=== PATIENT | female | born 1990 | race Two or more races ===

== ENCOUNTER → 2018-12-11 | Outpatient (CLI) | payer BC ==
[~2018-12-11] MED LIST: FER325 PO; MAG-19 PO
== END | disposition home or self-care (01) ==
LOC: LAB 12:40
PROVIDERS: ATTEND Obstetrics & Gynecology
DX: O26.91 Pregnancy related conditions, unspecified, first trimester (principal); Z3A.00 Weeks of gestation of pregnancy not specified
CPT/HCPCS: 84702

== ENCOUNTER 2018-12-14 20:54 | Emergency (ER) | payer BC ==
[~2018-12-14] VITALS: Ht 162.6 cm; Wt 62.7 kg
[2018-12-14 20:57] VITALS: BP 133/63; PULSE 82; RESP 17; Ht 162.6 cm; Wt 62.7 kg
[2018-12-14] MEDS ORDERED: LIDOCAINE/MYLANTA 40 ML BTL PO STA (21:25)
[2018-12-14] MEDS ORDERED: FER325 PO (22:24)
[2018-12-14] MEDS ORDERED: MAG-19 PO (22:24)
--- NOTE | 2018-12-14 22:31 | ERD ---
ER Documentation Chief Complaint Chief Complaint AP x1 day. no n/v/d/urinary symptoms HPI 28-year-old female past medical history of anemia presents for umbilical abdominal pain x1 day. She states that the pain is 5 out of 10. Pain is described as a dull sensation. Pain is intermittent. There is no pain radiation. She denies any fevers or chills. Denies nausea or vomiting. Denies dysuria. No treatment tried at home. No other modifying factors noted. ROS All systems reviewed and are negative except as per history of present illness. Medications Home Meds Active Scripts Ferrous Sulfate* (Ferrous Sulfate*) 325 Mg Tabec, 325 MG PO DAILY for anemia, #30 TAB Prov:ANA COLLINS DO 12/14/18 Magaldrate/Simethicone* (Mylanta*) 355 Ml Susp, 30 ML PO QID PRN for GASTROINTESTINAL UPSET, #1 BOTTLE Prov:ANA COLLINS DO 12/14/18 Allergies Allergies: Coded Allergies: No Known Drug Allergies (Verified Allergy, Unknown, 12/14/18) PMhx/Soc Medical and Surgical Hx: pt denies Medical Hx, pt denies Surgical Hx Hx Alcohol Use: No Hx Substance Use: No Hx Tobacco Use: No Smoking Status: Never smoker FmHx Family History: No coronary disease Physical Exam Vitals Vital Signs Date Temp Pulse Resp B/P (MAP) Pulse Ox O2 O2 Flow FiO2 Time Delivery Rate 12/14/18 98.9 82 17 133/63 99 20:57 (86) Physical Exam Const: No acute distress Resp: Clear to auscultation bilaterally Cardio: Regular rate and rhythm, no murmurs Abd: Soft, non distended. Normal bowel sounds, mild periumbilical tenderness palpation, no McBurney's point tenderness, no Alva sign, no rebound or guarding noted Skin: No petechiae or rashes Back: No midline or flank tenderness Ext: No cyanosis, or edema Neur: Awake and alert Psych: Normal Mood and Affect Result Diagram: 12/14/18213712/14/182136 Results 24 hrs Laboratory Tests Test 12/14/18 21:35 12/14/18 21:37 12/14/18 21:38 POC Beta HCG, Qualitative NEGATIVE Sodium Level 139 mmol/L Potassium Level 3.9 mmol/L Chloride Level 106 mmol/L Carbon Dioxide Level 22 mmol/L Anion Gap 11 Blood Urea Nitrogen 17 mg/dl Creatinine 0.58 mg/dl Est Glomerular Filtrat Rate mL/min > 60 mL/min Glucose Level 94 mg/dl Calcium Level 9.4 mg/dl Total Bilirubin 0.6 mg/dl Direct Bilirubin 0.00 mg/dl Indirect Bilirubin 0.6 mg/dl Aspartate Amino Transf (AST/SGOT) 14 IU/L Alanine 13 IU/L Aminotransferase (ALT/SGPT) Alkaline Phosphatase 50 IU/L Total Protein 7.2 g/dl Albumin 4.3 g/dl Globulin 2.90 g/dl Albumin/Globulin Ratio 1.48 Lipase 49 U/L White Blood Count 11.6 10^3/ul Red Blood Count 4.73 10^6/ul Hemoglobin 9.1 g/dl Hematocrit 29.4 % Mean Corpuscular Volume 62.2 fl Mean Corpuscular Hemoglobin 19.2 pg Mean Corpuscular 31.0 g/dl Hemoglobin Concent Red Cell Distribution Width 15.9 % Platelet Count 365 10^3/UL Mean Platelet Volume 9.9 fl Immature Granulocytes % 0.600 % Neutrophils % 54.9 % Lymphocytes % 32.3 % Monocytes % 6.9 % Eosinophils % 4.5 % Basophils % 0.8 % Nucleated Red Blood Cells % 0.0 /100WBC Immature Granulocytes # 0.070 10^3/ul Neutrophils # 6.4 10^3/ul Lymphocytes # 3.8 10^3/ul Monocytes # 0.8 10^3/ul Eosinophils # 0.5 10^3/ul Basophils # 0.1 10^3/ul Nucleated Red Blood Cells # 0.0 10^3/ul Urine Color YELLOW Urine Clarity CLEAR Urine pH 7.0 Urine Specific Clarinda 1.020 Urine Ketones NEGATIVE mg/dL Urine Nitrite NEGATIVE mg/dL Urine Bilirubin NEGATIVE mg/dL Urine Urobilinogen 1+ mg/dL Urine Leukocyte Esterase NEGATIVE Ana/ul Urine Hemoglobin NEGATIVE mg/dL Urine Glucose NEGATIVE mg/dL Urine Total Protein NEGATIVE mg/dl Current Medications Medications Dose Sig/Lore Start Time Status Last (Trade) Ordered Route PRN Stop Time Admin Dose Reason Admin 40 ml ONCE STAT 12/14/18 DC 12/14/18 Miscellaneous PO 21:25 12/14/18 21:43 Medication 21:26 (Gi Cocktail (2)) Procedures/MDM Medical Decision Making: Differential diagnosis includes but not limited to acute gastritis, acute gastroenteritis, appendicitis, cholecystitis, pancreatitis, nephrolithiasis Patient appeared well on physical exam. Nontoxic appearing. ED course: Patient was given GI cocktail. Symptoms improved with treatment. Labs: CBC showed no elevated WBC to suggest infection, hemoglobin 9, MCV is low CMP showed no electrolyte abnormalities, there was normal kidney and liver function Lipase was normal Urine was negative UA was negative for infection Given benign abdominal exam and normal lab values, low suspicion for an acute abdomen at this point. Advised to return to the ER if the pain persists. Review of labs shows the patient has a microcytic anemia. Patient does admit on further questioning that she has heavy periods. She states that she is curren tly taking folic acid. Patient given prescription for iron. Advised to repeat CBC with her primary care physician. Patient possibly has acute gastritis. Prescription(s): Patient given prescription for supportive medications . Patient advised to follow up with PCP in 1-2 days. Patient advised to return to ED for new or worsening symptoms. Patient stable on discharge from the ED. Disclaimer: Inadvertent spelling and grammatical errors are likely due to EHR/dictation software use and do not reflect on the overall quality of patient care. Also, please note that the electronic time recorded on this note does not necessarily reflect the actual time of the patient encounter. Departure Diagnosis: Primary Impression: Abdominal pain Abdominal location: periumbilical Qualified Codes: R10.33 - Periumbilical pain Condition: Fair Patient Instructions: Abdominal Pain, Anemia, Type Not Specified (Adult) Referrals: [facility] YOU HAVE RECEIVED A MEDICAL SCREENING EXAM AND THE RESULTS INDICATE THAT YOU DO NOT HAVE A CONDITION THAT REQUIRES URGENT TREATMENT IN THE EMERGENCY DEPARTMENT. FURTHER EVALUATION AND TREATMENT OF YOUR CONDITION CAN WAIT UNTIL YOU ARE SEEN IN YOUR DOCTORS OFFICE WITHIN THE NEXT 1-2 DAYS. IT IS YOUR RESPONSIBILITY TO MAKE AN APPOINTMENT FOR FOLOW-UP CARE. IF YOU HAVE A PRIMARY DOCTOR --you should call your primary doctor and schedule an appointment IF YOU DO NOT HAVE A PRIMARY DOCTOR YOU CAN CALL OUR PHYSICIAN REFERRAL HOTLINE AT IF YOU CAN NOT AFFORD TO SEE A PHYSICIAN YOU CAN CHOSE FROM THE FOLLOWING [facility] [address] [facility]. [facility] [address] [facility] [address] [facility]. [facility] [address] [facility]. [facility] [address] [facility]. [facility]. [address] Additional Instructions: Call your primary care doctor TOMORROW for an appointment during the next 1-2 days.See the doctor sooner or return here if your condition worsens before your appointment time. Recommend repeat complete blood count with PCP. ANA COLLINS DO December 14, 2018 22:31
== END 2018-12-14 22:32 | disposition home or self-care (01) ==
LOC: E/R 20:54
DX: R10.33 Periumbilical pain (principal)
CPT/HCPCS: 36415; 80053; 81003; 81025; 83690; 85025; 99283

== ENCOUNTER → 2019-01-25 | Outpatient (CLI) | payer BC | END | disposition home or self-care (01) | LOC: LAB 09:53 | PROVIDERS: ATTEND Internal Medicine | DX: E78.5 Hyperlipidemia, unspecified (principal); R73.03 Prediabetes; D53.9 Nutritional anemia, unspecified | CPT/HCPCS: 80053; 80061; 82607; 82728; 82746; 83036; 85025 ==

== ENCOUNTER → 2019-01-30 | Outpatient (CLI) | payer BC | END | disposition home or self-care (01) | LOC: LAB 15:55 | PROVIDERS: ATTEND Internal Medicine | DX: D53.9 Nutritional anemia, unspecified (principal) | CPT/HCPCS: 83540 ==